=== PATIENT | female | born 1985 | race Caucasian/White ===

== ENCOUNTER 2016-05-26 09:37 | Emergency (ER) | payer OTHER ==
[~2016-05-26] VITALS: Ht 170.2 cm; Wt 139.2 kg
[~2016-05-26 09:37] MED LIST: COLACE100 MG PO; NOR10T PO; NORCO1 TA2 PO
[2016-05-26 11:26] VITALS: BP 129/61
== END 2016-05-26 11:26 | disposition home or self-care (01) ==
LOC: ED 09:37
DX: M54.5 Low back pain (principal); I10 Essential (primary) hypertension; Z79.899 Other long term (current) drug therapy
CPT/HCPCS: J1885

== ENCOUNTER 2016-06-22 11:42 | Emergency (ER) | payer OTHER ==
[~2016-06-22] VITALS: Ht 172.7 cm; Wt 139.8 kg
--- NOTE | 2016-06-22 11:56 | NUR ---
PT AMBULATORY BACK TO ED LOBBY TO AWAIT BED AVAILABILITY, PT A/O X4, RESPS EVEN AND UNLABORED, NO S/S OF DISTRESS NOTED.
--- NOTE | 2016-06-22 13:45 | NUR ---
PT CAME TO ED TODAY W/ COMPLAINT OF ABDOMINAL PAIN, NAUSEA, AND DIARRHEA. PER PT, SHE BEGAN HAVING BLQ ABD PAIN AND PERIUMBILICAL ABDOMINAL PAIN 10 DAYS AGO. SHE STARTED HAVING INTERMITTENT NAUSEA 9 DAYS AGO AND INTERMITTENT DIARRHEA ONE WEEK AGO. PT [facility] AND GIVEN RX FOR CIPRO FOR NON-SPECIFIC BACTERIAL INFECTION. PT REPORTS SYMPTOMS ONGOING AND THAT SHE IS ALSO HAVING BILATERAL LOWER BACK PAIN. PT A&O X 4, BREATHING EVEN AND UNLABORED, WITH NO VISUAL SIGNS OF ACUTE OR RESP DISTRESS NOTED.
--- NOTE | 2016-06-22 13:51 | NUR ---
PT AMBULATORY TO AND FROM BATHROOM WITH A STEADY GAIT AND W/O INCIDENT.
--- NOTE | 2016-06-22 14:13 | NUR ---
DR BARRON AT BEDSIDE FOR MSE.
[2016-06-22 14:41] LABS: BASOPHIL % 0.3 % (0-2); PLATELET COUNT 338 x10^3mcL (130-400); RED CELL DISTRIBUTION WIDTH 12.9 % (11.5-14.5)
--- NOTE | 2016-06-22 14:47 | NUR ---
PT TAKEN TO CT VIA GURNEY IN A STABLE CONDITION AND W/O INCIDENT.
[2016-06-22 14:52] LABS: CALCIUM 8.9 mg/dL (8.5-10.1); CARBON DIOXIDE 32.4 mmol/L (21-32); CHLORIDE SERUM 105 mmol/L (98-107); GFR1 > 60 mL/min; GLUCOSE SERUM 97 mg/dL (74-106); POTASSIUM SERUM 4.3 mmol/L (3.5-5.1); SODIUM SERUM 143 mmol/L (136-145)
[2016-06-22 14:56] LABS: ALBUMIN 3.5 g/dL (3.4-5.0); ALKALINE PHOSPHATASE 62 U/L (46-116); ALT/SGPT 16 U/L (14-59); AMYLASE 75 U/L (25-115); AST/SGOT 6 U/L (15-37); BILIRUBIN TOTAL 0.4 mg/dL (0.20-1.00); LIPASE 155 IU/L (73-393); TOTAL PROTEIN, SERUM 8.3 g/dL (6.4-8.2)
[2016-06-22 15:14] LABS: UA SPECIFIC GRAVITY 1.015 (1.005-1.035); microscopic required? YES; urine erythrocyte 2+ (NEGATIVE)
--- NOTE | 2016-06-22 16:45 | NUR ---
PT INFORMED OF PENDING ADMISSION. PT STATES SHE DOES NOT WISH TO STAY IN HOSPITAL. DR BARRON AT BEDSIDE AT THIS TIME SPEAKING TO PT.
--- NOTE | 2016-06-22 16:51 | NUR ---
PER DR BARRON, PT AGREED TO STAY AND BE ADMITTED.
--- NOTE | 2016-06-22 17:01 | NUR ---
PT NOW STATES THAT SHE CHANGED HER MIND AND DOES NOT WISH TO STAY IN HOSPITAL. DR BARRON INFORMED. PT WILL BE SIGNING AMA.
[2016-06-22 17:24] VITALS: BP 132/80
== END 2016-06-22 17:25 | disposition left against medical advice (07) ==
LOC: ED 11:42 → MU 16:36 → ED 16:36
PROVIDERS: Emergency Medicine
DX: N20.0 Calculus of kidney (principal); N39.0 Urinary tract infection, site not specified; I10 Essential (primary) hypertension
CPT/HCPCS: 83880; J1885; J2405; J7030

== ENCOUNTER 2016-12-21 12:58 | Emergency (ER) | payer OTHER ==
[2016-12-21 16:53] VITALS: BP 139/94
== END 2016-12-21 16:53 | disposition home or self-care (01) ==
LOC: ED 12:58
DX: R11.10 Vomiting, unspecified (principal); R19.7 Diarrhea, unspecified; I10 Essential (primary) hypertension; K80.80 Other cholelithiasis without obstruction

== ENCOUNTER 2016-12-29 07:37 | Emergency (ER) | payer OTHER ==
[~2016-12-29] VITALS: Ht 170.2 cm; Wt 145.1 kg
[2016-12-29 07:53] VITALS: BP 135/82
== END 2016-12-29 08:30 | disposition home or self-care (01) ==
LOC: ED 07:37
DX: J02.9 Acute pharyngitis, unspecified (principal); I10 Essential (primary) hypertension; Z79.1 Long term (current) use of non-steroidal anti-inflammatories (NSAID); Z98.890 Other specified postprocedural states

== ENCOUNTER 2018-12-20 09:48 | Emergency (ER) | payer MEDICAID ==
[~2018-12-20] VITALS: Ht 170.2 cm; Wt 140.6 kg
[2018-12-20 10:05] VITALS: Ht 170.2 cm; Wt 140.6 kg
[2018-12-20 11:25] LABS: BASOPHIL % 0.5 % (0-2); PLATELET COUNT 309 x10^3mcL (130-400); RED CELL DISTRIBUTION WIDTH 12.2 % (11.5-14.5)
[2018-12-20 11:26] LABS: C REACTIVE PROTEIN 3.9 mg/dL (<=0.9); CALCIUM 8.5 mg/dL (8.5-10.1); CARBON DIOXIDE 27.7 mmol/L (21-32); CHLORIDE SERUM 104 mmol/L (98-107); CREATININE SERUM 0.9 mg/dL (0.6-1.0); GFR1 > 60 mL/min; GLUCOSE SERUM 97 mg/dL (74-106); POTASSIUM SERUM 3.9 mmol/L (3.5-5.1); SODIUM SERUM 139 mmol/L (136-145)
[2018-12-20 14:08] VITALS: BP 153/96
== END 2018-12-20 14:08 | disposition home or self-care (01) ==
LOC: ED 09:48
PROVIDERS: Emergency Medicine
DX: M06.842 Other specified rheumatoid arthritis, left hand (principal); M06.821 Other specified rheumatoid arthritis, right elbow; M06.862 Other specified rheumatoid arthritis, left knee; I10 Essential (primary) hypertension; Z98.890 Other specified postprocedural states
CPT/HCPCS: 87491; 87591; J1885; J7030; Q0092